=== PATIENT | female | born 1965 ===

== ENCOUNTER 2016-12-15 02:04 | Emergency (ER) | payer OTHER ==
[2016-12-15 02:43] LABS: SPECIFIC GRAVITY 1.025 (1.001-1.030); URINE BILIRUBIN 1+ (NEGATIVE); URINE BLOOD 4+ (NEGATIVE); URINE GLUCOSE (UA) NEGATIVE (NEGATIVE); URINE LEUKOCYTE ESTERASE 2+ (NEGATIVE); URINE NITRITE POSITIVE (NEGATIVE); URINE PROTEIN 2+ (NEGATIVE); URINE UROBILINOGEN 1 mg/dL (0-1 mg/dl)
[2016-12-15 02:44] LABS: URINE APPEARANCE CLOUDY; URINE COLOR BROWN
[2016-12-15] MEDS ORDERED: CIPROFLOXACIN 500 MG TABLET ONE (02:48)
[2016-12-15] MEDS ORDERED: PHENAZOPYRIDINE HCL 200 MG TABLET ONE (02:48)
[2016-12-15] MEDS ORDERED: ONDANSETRON 4 MG ODT TAB ONE (02:48)
[2016-12-15 02:50] LABS: URINE BACTERIA 3+; URINE EPITHELIAL CELLS FEW /hpf; URINE MUCUS 1+; URINE RBC >100 /hpf
[2016-12-15 02:51] LABS: URINE WBC >100 /hpf
== END 2016-12-15 03:14 | disposition home or self-care (01) ==
LOC: ED 02:04
DX: N39.0 Urinary tract infection, site not specified (principal); G25.81 Restless legs syndrome
CPT/HCPCS: 87086; 87186; 81001; 99283 ×2; A9270 ×3